=== PATIENT | female | born 2000 | race Caucasian/White ===

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

== ENCOUNTER 2021-04-05 02:12 | Emergency (ER) | payer OTHER ==
[~2021-04-05 02:12] MED LIST: FLONASE 0.05% N16 GM; MEDROL DOSEPAK 24 MG PO; ZOFRAN4 MG PO; ZYRTEC10 MG PO
[2021-04-05 02:35] LABS: HEMOGLOBIN 12.8 gm/dl (12.3-15.3); RED BLOOD COUNT 4.2 M/UL (4.00-5.10)
[2021-04-05 02:49] LABS: BUN/CREATININE RATIO 14 (0-10)
== END 2021-04-05 06:16 | disposition home or self-care (01) ==
LOC: ER1 02:12
PROVIDERS: Emergency Medicine
DX: R10.31 Right lower quadrant pain (principal); R11.0 Nausea; Z90.49 Acquired absence of other specified parts of digestive tract
CPT/HCPCS: 76830; 80048; 81001; 84703; 85025; 96374; 96375; 99284; J1885; J2405; Q9967

== ENCOUNTER → 2021-05-10 | Day surgery (SDC) | payer OTHER ==
[~2021-05-10] MED LIST changes: +ENULOSE10 GM/15 M PO; +LINZESS72 MCG PO; +VITAMIN D21250 MCG PO
== END | disposition home or self-care (01) ==
LOC: OR 06:32
DX: K58.1 Irritable bowel syndrome with constipation (principal); K62.5 Hemorrhage of anus and rectum; D64.9 Anemia, unspecified; Z72.89 Other problems related to lifestyle; E66.3 Overweight; Z68.26 Body mass index [BMI] 26.0-26.9, adult; Z79.899 Other long term (current) drug therapy; Z53.9 Procedure and treatment not carried out, unspecified reason
CPT/HCPCS: 74018; 84703; J7040

== ENCOUNTER 2021-06-29 16:34 | Emergency (ER) | payer OTHER ==
[2021-06-29 18:35] LABS: HEMOGLOBIN 14.1 gm/dl (12.3-15.3); RED BLOOD COUNT 4.6 M/UL (4.00-5.10); WHITE BLOOD COUNT 7.7 K/UL (4.5-11.0)
[2021-06-29 19:16] LABS: BUN/CREATININE RATIO 17 (0-10)
[2021-06-29] MEDS ORDERED: IBUPROFEN IB200 MG PO (22:06)
[2021-06-29] MEDS ORDERED: YAZ 28 TABLET1 EACH PO (22:06)
== END 2021-06-29 22:25 | disposition home or self-care (01) ==
LOC: ER1 16:34
PROVIDERS: Physician Assistant
DX: R93.89 Abnormal findings on diagnostic imaging of other specified body structures (principal); R10.2 Pelvic and perineal pain; G89.29 Other chronic pain; F17.290 Nicotine dependence, other tobacco product, uncomplicated; Z90.89 Acquired absence of other organs
CPT/HCPCS: 80053; 81001; 83690; 83735; 84703; 85025; 85652; 86140; 87086; 93005; 96374; 96375; 96376; 99284; J1885; J2405; J2765; Q9967

== ENCOUNTER 2021-08-24 11:54 | Emergency (ER) | payer OTHER ==
[~2021-08-24 11:54] MED LIST changes: +IBUPROFEN IB200 MG PO; +YAZ 28 TABLET1 EACH PO
[2021-08-24 13:21] LABS: HEMOGLOBIN 12.7 gm/dl (12.3-15.3); RED BLOOD COUNT 4.1 M/UL (4.00-5.10); WHITE BLOOD COUNT 6.4 K/UL (4.5-11.0)
== END 2021-08-24 17:35 | disposition home or self-care (01) ==
LOC: ER1 11:54
DX: R10.9 Unspecified abdominal pain (principal); D69.6 Thrombocytopenia, unspecified
CPT/HCPCS: 80053; 81001; 83690; 84703; 85025; 96361; 96374; 96375; 99284; J2270; J2550; Q9967

== ENCOUNTER 2021-09-23 23:06 | Emergency (ER) | payer OTHER ==
[~2021-09-23] VITALS: Ht 160 cm; Wt 63.5 kg
[2021-09-24 04:42] LABS: HEMOGLOBIN 13.1 gm/dl (12.3-15.3); RED BLOOD COUNT 4.31 M/UL (4.00-5.10); WHITE BLOOD COUNT 5.5 K/UL (4.5-11.0)
[2021-09-24 05:01] LABS: BUN/CREATININE RATIO 17 (0-10)
[2021-09-24] MEDS ORDERED: PHENERGAN 25 MG25 M1 PO (09:16)
[2021-09-24] MEDS ORDERED: PROTONIX40 MG PO (09:16)
== END 2021-09-24 09:21 | disposition home or self-care (01) ==
LOC: ER1 23:06
PROVIDERS: Physician Assistant
DX: R06.02 Shortness of breath (principal); J02.9 Acute pharyngitis, unspecified; F17.290 Nicotine dependence, other tobacco product, uncomplicated; Z20.822 Contact with and (suspected) exposure to COVID-19
CPT/HCPCS: 0241U; 70491; 71045; 80053; 84703; 85025; 87081; 87880; 93005; 96374; 96375; 99285; C9113; J1885; J2550; J2765; Q9967